=== PATIENT | female | born 1975 | race Caucasian/White ===

== ENCOUNTER → 2017-09-26 10:39 | Outpatient (CLI) | payer OTHER, SELFPAY ==
[2017-10-02 15:35] LABS: HPV Reflexed? NOT INDICATED
== END ==
PROVIDERS: Visit Provider Obstetrics & Gynecology
DX: Z12.4 Encounter for screening for malignant neoplasm of cervix (principal)
CPT/HCPCS: 88175; G0145

== ENCOUNTER → 2017-11-26 15:36 | Outpatient (CLI) | payer OTHER, SELFPAY ==
--- NOTE | 2017-11-26 15:39 | BI_ITS ---
MAMMOGRAPHY - BILATERAL SCREENING REASON FOR EXAM: Female, 42 years old. Routine annual screening examination. PERTINENT HISTORY: Mother with breast cancer. Aunts with breast cancer. TECHNIQUE: Digital bilateral breast mihir (3D mammographic acquisition) in the CC and MLO projections. 2-D mediolateral oblique (MLO) and craniocaudad (CC) views of both breasts were obtained. CAD: Full Field Digital Mammography with Computer Added Detection was performed. COMPARISON: Comparison is made with prior study dated November 22, 2016 and November 22, 2015. FINDINGS: Breast Composition: The breasts are heterogeneously dense, which may obscure small masses. There are no dominant masses or suspicious calcifications. No other significant abnormalities are identified. There has been no significant change since the prior study. BI/SCREENING MAMM (CAD), BILAT IMPRESSION: Stable bilateral screening mammogram. Yearly follow-up mammogram recommended. (A) ASSESSMENT CATEGORY: BIRADS Category 1: Negative. A letter regarding these results will be sent to the patient by the facility within 30 days. Approximately 10% of breast cancers are not detected by mammography. A normal mammogram should not delay biopsy of a clinically suspicious abnormality. [id number] Electronically Signed: Erik Giron MD at 8:56 EDT Tel [phone], Service support ,
== END ==
PROVIDERS: Family Provider Family Medicine; PCP Family Medicine; Visit Provider Obstetrics & Gynecology
DX: Z12.31 Encounter for screening mammogram for malignant neoplasm of breast (principal)
CPT/HCPCS: 77063; 77067

== ENCOUNTER → 2018-11-27 15:50 | Outpatient (CLI) | payer OTHER, SELFPAY ==
--- NOTE | 2018-11-27 15:52 | BI_ITS ---
MAMMOGRAPHY - BILATERAL SCREENING REASON FOR EXAM: Female, 43 years old. Routine annual screening examination. PERTINENT HISTORY: Mother with breast cancer. Aunt with breast cancer. TECHNIQUE: Digital bilateral breast dominic (3D mammographic acquisition) in the CC and MLO projections. 2-D mediolateral oblique (MLO) and craniocaudad (CC) views of both breasts were obtained. CAD: Full Field Digital Mammography with Computer Added Detection was performed. COMPARISON: Comparison is made with prior examination to November 26, 2017 and November 22, 2016. FINDINGS: Breast Composition: The breasts are heterogeneously dense, which may obscure small masses. There are no dominant masses or suspicious calcifications. No other significant abnormalities are identified. There has been no significant change since the prior study. BI/SCREEN MAMM (CAD) W/DOMINIC BILAT IMPRESSION: Stable bilateral screening mammogram. Yearly follow-up mammogram recommended. (A) ASSESSMENT CATEGORY: BIRADS Category 1: Negative. A letter regarding these results will be sent to the patient by the facility within 30 days. Approximately 10% of breast cancers are not detected by mammography. A normal mammogram should not delay biopsy of a clinically suspicious abnormality. [id number] Electronically Signed: Erik Giron, at 8:49 EDT , Service support ,
== END ==
PROVIDERS: Family Provider Family Medicine; PCP Family Medicine; Referring Provider Obstetrics & Gynecology; Visit Provider Obstetrics & Gynecology
DX: Z12.31 Encounter for screening mammogram for malignant neoplasm of breast (principal); Z80.3 Family history of malignant neoplasm of breast
CPT/HCPCS: 77063; 77067

== ENCOUNTER → 2019-10-17 | Outpatient (CLI) | payer OTHER, SELFPAY ==
[2019-10-23 07:35] LABS: HPV APTIMA, High Risk Negative (Negative)
== END | disposition home or self-care (01) ==
LOC: LABSPEC 13:58
PROVIDERS: PCP Family Medicine; Visit Provider Obstetrics & Gynecology
DX: Z12.4 Encounter for screening for malignant neoplasm of cervix (principal)
CPT/HCPCS: 87624; 88175; G0145

== ENCOUNTER → 2019-12-22 15:29 | Outpatient (CLI) | payer OTHER, SELFPAY ==
--- NOTE | 2019-12-22 15:31 | BI_ITS ---
MAMMOGRAPHY - BILATERAL SCREENING REASON FOR EXAM: Female, 44 years old. Routine annual screening examination. PERTINENT HISTORY: Mother with breast cancer. Aunt with breast cancer. TECHNIQUE: Digital bilateral breast dominic (3D mammographic acquisition) in the CC and MLO projections. 2-D mediolateral oblique (MLO) and craniocaudad (CC) views of both breasts were obtained. CAD: Full Field Digital Mammography with Computer Added Detection was performed. COMPARISON: Comparison is made with prior study dated 11/27/2018 and 11/26/2017. FINDINGS: Breast Composition: The breasts are heterogeneously dense, which may obscure small masses. There are no dominant masses or suspicious calcifications. No other significant abnormalities are identified. There has been no significant change since the prior study. BI/SCREEN MAMM (CAD) W/DOMINIC BILAT IMPRESSION: Stable bilateral screening mammogram. Yearly follow-up mammogram recommended. (A) ASSESSMENT CATEGORY: BIRADS Category 1: Negative. A letter regarding these results will be sent to the patient by the facility within 30 days. Approximately 10% of breast cancers are not detected by mammography. A normal mammogram should not delay biopsy of a clinically suspicious abnormality. [id number] Electronically Signed: Erik Giron, at 9:21 EDT , Service support ,
== END ==
PROVIDERS: PCP Family Medicine; Referring Provider Obstetrics & Gynecology; Visit Provider Obstetrics & Gynecology
DX: Z12.31 Encounter for screening mammogram for malignant neoplasm of breast (principal)
CPT/HCPCS: 77063; 77067

== ENCOUNTER 2020-02-26 05:34 | Day surgery (SDC) | payer OTHER, SELFPAY ==
[2020-02-19 17:26] LABS: Hematocrit 38.6 % (37-47); Hemoglobin 12.4 g/dL (12.0-15.0); Mean Corp Hgb Conc 32.1 g/dL (32-36); Mean Corpuscular Hgb 28.6 pg (27.0-32.0); Mean Corpuscular Volume 89.1 fL (81-99); Mean Platelet Vol. 11.4 fl (6.2-12.0); Platelet Count 380 K/mm3 (150-450); RBC Distribution Width CV 14.1 % (11.6-14.6); RBC Distribution Width SD 45.7 fl (35.1-43.9); Red Blood Count 4.33 M/mm3 (4.2-5.4); White Blood Count 8.8 K/mm3 (4.4-11.0)
[2020-02-19 17:35] LABS: Partial Thromboplast Time 30.1 Seconds (24.1-36.2); Prothrombin Time (Protime)PT. 12.6 SECONDS (11.7-14.9)
[2020-02-19 18:13] LABS: Magnesium 2.2 mg/dL (1.6-2.6)
--- NOTE | 2020-02-25 20:36 | PCM.HPOB.BLA ---
History and Physical Name: MITZY CONLEY Age: 44 Date of : 1975 Mitzy Conley, a 44 year old female 1 0 0 1 2, presents for Robotic assisted total laparoscopic hysterectomy bilateral salpingectomy. Cystoscopy on February 26, 2020 at 7:30. -- Mitzy has dealt with heavy menses for a long time and has come to the point that she would like to discuss surgical intervention. States menses is monthly and regular but bleeding is very heavy for 2-3 days. States changes tampon sometimes twice an hour. heavy menses which began longstanding. Mitzy claims it started with menses becoming increasingly heavier and has been present years. It occurs first few days of menstrual cycle. It is located in the uterus. Severity is severe MEDICATIONS HISTORY: None ALLERGIES: NKA Infections - Chicken pox Illnesses - chronic vaginal yeast and burning Accidents - no injuries of consequence Hospitalizations - Childbirth and see surgery Review of Systems: GENERAL - Denies fever, or chills SKIN - Denies skin changes EYES - wears eye glasses EARS - Denies difficulty hearing NOSE - Denies nasal congestion or bleeding MOUTH - Denies sore throat or difficulty swallowing NECK - Denies pain or swelling RESPIRATORY - Denies shortness of breath or wheezing CARDIOVASCULAR - Denies palpitations or chest pain GASTROINTESTINAL - Denies nausea, vomiting, diarrhea, constipation GENITOURINARY - heavy menses MUSCULOSKELETAL - Denies joint or muscle pain NEUROLOGICAL - Denies localized numbness or weakness PSYCHIATRIC - anxiety ENDOCRINE - Denies heat or cold intolerance, weight loss or gain HEMATO-IMMUNOLOGIC - Denies excessive bleeding with cuts SOCIAL HISTORY: Alcohol Use - RARELY Smoking - denies smoking Diet - balanced Diet Lifestyle - moderate stress lifestyle and Exercise - regular Seat Belt Use - always Employer - [employer] Job Description - [employer] Illicit Drug Use - denies use of street drugs Sexual Activity - Spouse-Sig Other Name - iBjan Conley Spouse-Sig Other Occupation - Senior Loan Officer Children Name(s) - DIANA JACKSON Control - none, infertility FAMILY HISTORY: Mother: Breast cancer. Maternal Aunt: Breast cancer. MENSTRUAL HISTORY: LMP Known?- DefiniteAmount/Duration - 4-6 days, Regularity - Regular, Frequency - monthly days, LMP - 01/27/20, Age Onset Menarche - 12 PAST PREGNANCIES: Total Pregnancies - 1; Full Term Pregnancies - 1; Premature - 0; Abortions, Induced - 0; Abortions, Spontaneous - 0; Ectopics - 0; Multiple Births - 1; Living Children - 2 SURGICAL HISTORY: 1. Laparoscopy, Exploritory Surgery, 1995 ; - 2. 01/05/2000 C section ; Dr Rendon - failure to progress PHYSICAL EXAM BP- 124/88 Sitting, Right arm, regular cuff Weight- 211.74492 lbs Height- 65.5 inch BMI:34.65 CONSTITUTIONAL - NAD, well nourished, and well developed SKIN - No rash, lesions, or ulcers HEENT - Normocephalic, PERRLA, EOMI NECK - No nodes, no nuchal rigidity and thyroid normal size and texture LYMPH NODES - Palpation of lymph nodes in neck and groins within normal limits LUNGS - CTA x2 without wheezes, crackles or rales CARDIAC - Regular rate and rhythm without rubs, murmurs, or gallops ABDOMEN - Without hepatosplenomegaly, distention, masses, rebound, or guarding; normal bowel sounds; no hernias EXTREMITIES - No edema or calf tenderness NEUROLOGICAL - Cranial nerves II-XII grossly intact PSYCHIATRIC - A and O to time, place, person, mood and affect External Genital Vagina - non-tender without lesions Urethra/Urethral Meatus - non-tender Bladder - non-tender Vagina - vaginal garcia are pink and moist without loss of rugae and no evidence of atropy Cervix - without cervical motion tenderness and has normal size and features without evident lesions Uterus - 5-6 cm in size, mobile and nontender Adnexa - clear without masses or tenderness ASSESSMENT/PLAN: 1. Abnormal Uterine And Vaginal Bleeding, Unspecified Regular but heavy menstrual cycles Medical vs surgical options discussed including IUD. Pt declines IUD and ablation. Desires hysterectomy r/b/a discussed U/s with 12x6 cm uterus and 3cm posterior fibroid. Images limited. Educated pt on results and that this would increase failure rate of ablation. Discussed IUD, myometctomy and hysterectomy. Elects for Hysterectomy Low risk, preoperative no indicated EMB. R/b/a discussed 2. Encounter For Other Preprocedural Examination For RA TLH BS, cystoscopy R/b/a discussed, all questions were answered and consent was signed No changed in medications, previous c/s and exploratory laparoscopy discussed increased risks. No issues with daily routine
[2020-02-26] VITALS (8 sets, daily range): BP systolic 108–129; BP diastolic 62–86; PULSE 53–99; RESP 14–18; TEMP 36.3–37.3; O2SAT 97–100; BMI 33.5
--- NOTE | 2020-02-26 | HYST_PTH ---
PATIENT: JORDANA CONLEY LOC: [facility] U#:[id number] AGE/SX: 44/F ROOM: RE02/26/[address]: Dr. Rudy Dyer MD : 1975 BED: DIS: 02/26/2020 SPEC #: [id number] RECD: 02/26/20 13:03 STATUS: RANDELL RE #: [id number] JASON: 02/26/20 00:[address]: Rudy Dyer DEPT: SURGICAL PATHOLOGY RECD BY: Bhavik Laguna ENTERED: 02/26/20 13:03 SP TYPE: HYSTERECT OTHR DR: Dr. Олег Ballard MD Tissues: Uterus, NOS Procedures: Surgery Specimen Level V HEADER OPERATION: ERAS, robotic assisted total laparoscopic hysterectomy PRE-OP DIAGNOSIS: Abnormal uterine and vaginal bleeding TISSUE SUBMITTED: Uterus, bilateral fallopian tubes MICROSCOPIC DIAGNOSIS Uterus, hysterectomy: Cervix - squamous metaplasia and mild chronic inflammation. Endometrium - transition endometrium. Myometrium - adenomyosis and leiomyomas. Right fallopian tube - no pathologic change. Left fallopian tube - no pathologic change. AM:veda 02/27/20 MICROSCOPIC DESCRIPTION Slides are reviewed. GROSS DESCRIPTION Received in fixative is one container labeled with the patient's name and designated uterus. The specimen consists of a uterus with attached cervix with two detached fallopian tubes. The uterus with cervix measures 11.5 x 6.5 x 5 cm and weighs 142 gm. The ectocervix is unremarkable. The endocervical canal measures 5.5 cm in length and is grossly unremarkable. The triangular endometrial cavity measures 4.5 x 3.3 cm. The endometrium is light jay and averages 0.2 cm in thickness. The myometrium measures 2 cm in average thickness and is distorted by multiple rubbery nodules that are white-jay in color and range in size from 1 to 2.5 cm. The right and left fallopian tubes are similar in appearance with average lengths of 5 cm and average diameters of 0.7 cm. The fimbrial ends are normal in appearance. Para Operator sections are submitted in ten cassettes as follows: 1 - anterior cervix, 2??posterior cervix, 3 & 4 - anterior uterine wall, 5 & 6 - posterior uterine wall, 7 - largest myometrial mass, 8 - smaller myometrial masses, 9 - right fallopian tube, 10 - left fallopian tube. / AM:veda 02/26/20 TC:1 CPT: 73183
[2020-02-26 06:25] LABS: Internal QC Validated? YES +Cl - CLEAR BKGD; Pregnancy, Urine Negative Negative
[2020-02-26] MEDS: Celecoxib 200 MG Capsule 400 MG PO (06:34)
[2020-02-26] MEDS: Acetaminophen 500 MG Tablet 1000 MG PO (06:35)
[2020-02-26] MEDS: Gabapentin 600 MG Tablet PO (06:35)
[2020-02-26] MEDS: Lactated Ringers 1,000 ML 40 ML IV ×2 (06:44→11:15)
[2020-02-26 06:45] LABS: Bedside Glucose 101 mg/dL (70-110)
[2020-02-26] MEDS: dexAMETHasone 10 MG/ML Vial 8 MG IV (06:45)
[2020-02-26] MEDS: Cefazolin 2 GM in 0.9% Normal Saline 100 ML IV (07:26)
--- NOTE | 2020-02-26 11:00 | DCINST_ITS ---
Discharge Diet: No Restrictions Discharge Activity: May not drive while taking narcotic pain medications., May Shower, - - No tub baths for 2 weeks May resume sexual activity in: 2 weeks Lifting Restrictions: No lifting over 25 pounds for 3 weeks Call your doctor if your incision/area has: Foul Smelling Discharge Call your doctor if you observe: Fever of 101 or Higher, Shortness of breath, Chest pain Allergies/Adverse Reactions: Allergies No Known Allergies Allergy (Verified 02/16/20 09:05) Medications to take at Discharge Ascorbic Acid [Vitamin C] 1,000 mg PO DAILY 02/16/20 Docusate Sodium [Colace] 50 mg PO DAILY PRN PRN 02/16/20 Mv-Min/Iron/Folic/Calcium/Vitk [Women's Multivitamin Tablet] 1 ea PO DAILY 02/16/20 [place]-3 Fatty Acids/Fish Oil [[place] 3 Fish Oil Softgel] 1 ea PO DAILY 02/16/20 Oxycodone [Oxyir] 5 mg PO Q6H PRN PRN 7 Days #28 tab 02/26/20 The following prescriptions were given: Oxycodone [Oxyir] 5 mg PO Q6H PRN PRN 7 Days #28 tab PRN Reason: Pain Score 6-10 Transmission Status: Received by [id number] Primary Care Physician: Олег Ballard MD [Primary Care Provider] - Test Results: Test results from this visit will be discussed in further detail at your follow- up appointment, if applicable. Please Follow Up With: Rudy Dyer MD When: 2 weeks
--- NOTE | 2020-02-26 11:03 | PCM.OPRPT ---
Report of Operation Date of Procedure: 02/26/20 Pre-Operative Diagnosis: Abnormal uterine bleeding Post-Operative Diagnosis: Abnormal uterine bleeding, fibroids Surgery/Procedure Performed:: Robotic assisted total laparoscopic hysterectomy bilateral salpingectomy, cystoscopy. Lysis of adhesions Description of Surgical Findings:: Surgeon: Rudy Dyer MD EBL: 100 cc Urine output: 500 cc IV fluids: 2000 cc Anesthesia: General Applications: None Specimen: Uterus, cervix, bilateral fallopian tubes Findings: Large amount of vesicouterine adhesions. Greater than 40 minutes lysing adhesions. Uterus with 3 cm posterior fibroid and anterior 3 cm fibroid. Uterus was noted to be enlarged approximately 14 cm. Cervix bilateral fallopian tubes and ovaries within normal limits. Post operative cystoscopy bilateral ureteral jets noted and no pathology. Consent: 44-year-old with a longstanding history of abnormal uterine bleeding noted to have 3 cm submucosal fibroid. In need of robotic assisted total laparoscopic hysterectomy bilateral salpingectomy and cystoscopy. Patient understands the risk of the procedure include but are not limited to visceral or vascular injury, prolonged hospitalization, blood loss and need for transfusion, reoperation. Patient stated understanding wished to proceed. All questions were answered consent was signed. Procedure: Patient was brought back to the OR where general anesthesia found be adequate. 2 g of Ancef were given for infection prophylaxis. Patient was appeared draped in dorsolithotomy position with yellowfin stirrups. Weighted speculum was placed in the posterior aspect of vagina. Cervical dilators were used to dilate the cervix. Uterine manipulator was placed. Veress needle was inserted at the umbilicus water safety test was passed, abdomen was insufflated. 8 mm midline supraumbilical trocar was inserted. Laparoscope was inserted and above findings were noted. Under direct visualization bilateral 8 mm trochars were inserted. Left upper quadrant with a millimeter trocar right upper quadrant 5 mm trocar. Robot was docked. Using a fenestrated bipolar and monopolar scissors the right fallopian tube was identified to the fimbriae cut and cauterized the mesosalpinx. Round ligament was cut and cauterized dissected anterior and posterior flap the broad ligament. Ovarian ligament was cut and cauterized. As noted above large amount of vesicouterine adhesions noted and carefully dissected for greater than 40 minutes. Left lobe tube was identified to the fimbriae mesosalpinx was cut and cauterized round ligament was cut and cauterized anterior portions and posterior portions of the broad ligament dissected. Ovarian ligament cut and cauterized. Vesicouterine adhesions and bladder flap further dissected. Bilateral uterine arteries skeletonized cut and cauterized lateralized beyond the level of colpotomy cup. Posterior portion of the colpotomy was performed further lysis of adhesions beyond the level of colpotomy cup. Colpotomy was made in a circumferential fashion. Uterus was removed. Good hemostasis was noted. Uterus closed in continuous running fashion. Good hemostasis was noted. Abdomen was deflated and trochars were removed under direct visualization good hemostasis noted. Laparoscopic port sites were closed subcutaneously. Cystoscopy was performed and above findings were noted. Patient tolerated the procedure well was brought to recovery in a stable condition. heat treat furnace operator: Del Michael Type of Anesthesia:: General
[2020-02-26] MEDS: Ketorolac 30 MG/ML Syringe IV (11:16)
[2020-02-26] MEDS: Ondansetron 4 MG/2 ML Vial IV (11:21)
== END 2020-02-26 14:56 | disposition home or self-care (01) ==
LOC: SDC 05:35 → AC 05:36
PROVIDERS: Anesthesiology; PCP Family Medicine; Referring Provider Obstetrics & Gynecology; Visit Provider Obstetrics & Gynecology
PROC: 0UT90ZZ Resection of Uterus, Open Approach (ICD-10-PCS; principal; 2020-02-26 07:10)
DX: D25.0 Submucous leiomyoma of uterus (principal); N80.0 Endometriosis of uterus; N87.9 Dysplasia of cervix uteri, unspecified; B37.3 Candidiasis of vulva and vagina; Z20.828 Contact with and (suspected) exposure to other viral communicable diseases; Z79.899 Other long term (current) drug therapy
CPT/HCPCS: 00840; 58571; S2900; 81025; 82962; 83735; 85027; 85610; 85730; 86850; 86900; 86901; 87426; 88307; C9803; J7120; J2405

== ENCOUNTER → 2020-12-22 15:42 | Outpatient (CLI) | payer OTHER, SELFPAY ==
[2020-02-26 06:12] VITALS: BMI 33.5
--- NOTE | 2020-12-22 15:45 | BI_ITS ---
MAMMOGRAPHY - BILATERAL SCREENING REASON FOR EXAM: Female, 45 years old. Routine annual screening examination. PERTINENT HISTORY: Mother with breast cancer. Aunt with breast cancer. TECHNIQUE: Digital bilateral breast dominic (3D mammographic acquisition) in the CC and MLO projections. 2-D mediolateral oblique (MLO) and craniocaudad (CC) views of both breasts were obtained. CAD: Full Field Digital Mammography with Computer Added Detection was performed. COMPARISON: Comparison is made with prior study dated 12/22/2019 and 11/27/2018. FINDINGS: Breast Composition: The breasts are heterogeneously dense, which may obscure small masses. There are no dominant masses or suspicious calcifications. No other significant abnormalities are identified. There has been no significant change since the prior study. BI/SCRN MAMM (CAD)W/DOMINIC BILAT IMPRESSION: Stable bilateral screening mammogram. Yearly follow-up mammogram recommended. (A) ASSESSMENT CATEGORY: BIRADS Category 1: Negative. A letter regarding these results will be sent to the patient by the facility within 30 days. Approximately 10% of breast cancers are not detected by mammography. A normal mammogram should not delay biopsy of a clinically suspicious abnormality. [id number] Electronically Signed: Erik Giron MD at 8:07 EDT , Service support ,
== END ==
PROVIDERS: PCP Family Medicine; Referring Provider Obstetrics & Gynecology; Visit Provider Obstetrics & Gynecology
DX: Z12.31 Encounter for screening mammogram for malignant neoplasm of breast (principal); Z80.3 Family history of malignant neoplasm of breast
CPT/HCPCS: 77063; 77067

== ENCOUNTER → 2021-12-06 | Outpatient (CLI) | payer OTHER, SELFPAY ==
[2021-12-06 18:34] LABS: Estradiol 44.4 pg/mL; Follicle Stimulating Hormone 8.6 mIU/mL; Luteinizing Hormone 5.1 mIU/mL; T4 Free Direct 0.99 ng/dL (0.76-1.46); Thyroid Stim Hormone (TSH) 2.63 uIU/mL (0.358-3.74)
== END | disposition home or self-care (01) ==
LOC: WOBLAB 16:42
PROVIDERS: PCP Family Medicine; Visit Provider Obstetrics & Gynecology
DX: Z01.419 Encounter for gynecological examination (general) (routine) without abnormal findings (principal)
CPT/HCPCS: 36415; 82670; 83001; 83002; 84439; 84443

== ENCOUNTER → 2021-12-26 | Outpatient (CLI) | payer OTHER, SELFPAY ==
--- NOTE | 2021-12-26 15:53 | BI_ITS ---
MAMMOGRAPHY - BILATERAL SCREENING REASON FOR EXAM: Female, 46 years old. Routine annual screening examination. PERTINENT HISTORY: Mother with breast cancer. Aunt with breast cancer. TECHNIQUE: Digital bilateral breast dominic (3D mammographic acquisition) in the CC and MLO projections. 2-D mediolateral oblique (MLO) and craniocaudad (CC) views of both breasts were obtained. CAD: Full Field Digital Mammography with Computer Added Detection was performed. COMPARISON: Comparison is made with prior study 12/22/2020 and 12/22/2019. FINDINGS: Breast Composition: The breasts are heterogeneously dense, which may obscure small masses. There are no dominant masses or suspicious calcifications. No other significant abnormalities are identified. There has been no significant change since the prior study. BI/SCRN MAMM (CAD)W/DOMINIC BILAT IMPRESSION: Stable bilateral screening mammogram. Yearly follow-up mammogram recommended. (A) ASSESSMENT CATEGORY: BIRADS Category 1: Negative. A letter regarding these results will be sent to the patient by the facility within 30 days. Approximately 10% of breast cancers are not detected by mammography. A normal mammogram should not delay biopsy of a clinically suspicious abnormality. [id number] Electronically Signed: Erik Giron MD at 8:50 EDT ,
== END | disposition home or self-care (01) ==
LOC: OPBI 15:51
PROVIDERS: PCP Family Medicine; Visit Provider Obstetrics & Gynecology
DX: Z12.31 Encounter for screening mammogram for malignant neoplasm of breast (principal); Z80.3 Family history of malignant neoplasm of breast
CPT/HCPCS: 77063; 77067

== ENCOUNTER → 2023-01-02 | Outpatient (CLI) | payer OTHER, SELFPAY ==
--- NOTE | 2023-01-02 14:55 | BI_ITS ---
MAMMOGRAPHY - BILATERAL SCREENING REASON FOR EXAM: Female, 47 years old. Routine annual screening examination. PERTINENT HISTORY: Mother with breast cancer. Aunt with breast cancer. TECHNIQUE: Digital bilateral breast dominic (3D mammographic acquisition) in the CC and MLO projections. 2-D mediolateral oblique (MLO) and craniocaudad (CC) views of both breasts were obtained. CAD: Full Field Digital Mammography with Computer Added Detection was performed. COMPARISON: Comparison is made with prior study dated December 26, 2021 and December 22, 2020. FINDINGS: Breast Composition: The breasts are heterogeneously dense, which may obscure small masses. There are no dominant masses or suspicious calcifications. No other significant abnormalities are identified. There has been no significant change since the prior study. BI/SCRN MAMM (CAD)W/DOMINIC BILAT IMPRESSION: Stable bilateral screening mammogram. Yearly follow-up mammogram recommended. (A) ASSESSMENT CATEGORY: BIRADS Category 1: Negative. A letter regarding these results will be sent to the patient by the facility within 30 days. Approximately 10% of breast cancers are not detected by mammography. A normal mammogram should not delay biopsy of a clinically suspicious abnormality. [id number] Electronically Signed: Erik Giron MD at 15:46 EDT ,
== END | disposition home or self-care (01) ==
LOC: OPBI 14:54
PROVIDERS: PCP Family Medicine; Referring Provider Family Medicine; Visit Provider Family Medicine
DX: Z12.31 Encounter for screening mammogram for malignant neoplasm of breast (principal); Z80.3 Family history of malignant neoplasm of breast
CPT/HCPCS: 77063; 77067

== ENCOUNTER → 2024-01-07 | Outpatient (CLI) | payer OTHER, SELFPAY ==
--- NOTE | 2024-01-07 15:24 | BI_ITS ---
MAMMOGRAPHY - BILATERAL SCREENING REASON FOR EXAM: Female, 48 years old. Routine annual screening examination. PERTINENT HISTORY: Mother with breast cancer. Aunt with breast cancer. TECHNIQUE: Digital bilateral breast dominic (3D mammographic acquisition) in the CC and MLO projections. 2-D mediolateral oblique (MLO) and craniocaudad (CC) views of both breasts were obtained. CAD: Full Field Digital Mammography with Computer Added Detection was performed. COMPARISON: Comparison is made with prior study January 02, 2023 and December 26, 2021. FINDINGS: Breast Composition: The breasts are heterogeneously dense, which may obscure small masses. There are no dominant masses or suspicious calcifications. No other significant abnormalities are identified. There has been no significant change since the prior study. BI/SCRN MAMM (CAD)W/DOMINIC BILAT IMPRESSION: Stable bilateral screening mammogram. Yearly follow-up mammogram recommended. (A) ASSESSMENT CATEGORY: BIRADS Category 1: Negative. A letter regarding these results will be sent to the patient by the facility within 30 days. Approximately 10% of breast cancers are not detected by mammography. A normal mammogram should not delay biopsy of a clinically suspicious abnormality. [id number] Electronically Signed: Erik Giron MD at 10:53 EDT ,
== END | disposition home or self-care (01) ==
LOC: OPBI 15:22
PROVIDERS: PCP Family Medicine; Referring Provider Nurse Practitioner Family; Visit Provider Nurse Practitioner Family
DX: Z12.31 Encounter for screening mammogram for malignant neoplasm of breast (principal)
CPT/HCPCS: 77063; 77067

== ENCOUNTER → 2025-01-07 | Outpatient (CLI) | payer OTHER, SELFPAY ==
--- NOTE | 2025-01-07 16:00 | BI_ITS ---
EXAM: BI/SCRN MAMM (CAD)W/DOMINIC BILAT
== END | disposition home or self-care (01) ==
LOC: OPBI 15:53
PROVIDERS: PCP Family Medicine; Referring Provider Nurse Practitioner Family; Visit Provider Nurse Practitioner Family
DX: Z12.31 Encounter for screening mammogram for malignant neoplasm of breast (principal)
CPT/HCPCS: 77063; 77067